=== PATIENT | male | born 1955 | race Caucasian/White ===

== ENCOUNTER 2019-12-21 10:08 | Outpatient (REF) | payer OTHER, SELFPAY ==
[2019-12-21 11:10] LABS: MANUAL DIFF FLAG NO
[2019-12-21 11:37] LABS: Basophils Absolute Auto 0.1 X10*3/uL (0.0-0.2); Basophils Percent Auto 0.8 % (0-2); Eosinophils Absolute Auto 0.3 X10*3/uL (0.0-0.4); Eosinophils Percent Auto 4.6 % (0-4); Hematocrit 45.6 % (42-52); Hemoglobin 15.1 g/dl (14.0-18.0); Imm Gran Abs Auto 0.03 X10*3/uL (0.00-0.03); Imm Gran Pct Auto 0.5 % (0.0-0.4); Lymphocytes Absolute Auto 1.6 X10*3/uL (1.2-4.9); Lymphocytes Percent Auto 25.5 % (20-40); Mean Corpuscular HGB Conc 33.1 g/dl (31.0-36.0); Mean Corpuscular Hemoglobin 30.6 pg (27.0-33.0); Mean Corpuscular Volume 92.3 fL (80-98); Mean Platelet Volume 10.7 fL (9.4-12.4); Monocytes Absolute Auto 0.4 X10*3/uL (0.1-1.2); Neutrophils Absolute Auto 3.9 X10*3/uL (2.0-8.3); Neutrophils Percent Auto 61.6 % (45-73); Platelet Count 156 X10*3/uL (160-400); Red Blood Count 4.94 X10*6/uL (4.60-5.80); Red Cell Distribution Width 11.9 % (11.0-16.0); White Blood Count 6.3 X10*3/uL (4.8-10.8)
[2019-12-21 11:54] LABS: Alanine Aminotransferase 130 U/L (0-40); Alkaline Phosphatase 63 U/L (39-117); Aspartate Amino Transferase 60 U/L (5-37); Bilirubin Direct 0.2 mg/dL (0.0-0.5); Bilirubin Total 0.4 mg/dL (0.0-1.0); Total Protein 6.4 g/dL (6.5-8.0)
== END 2019-12-21 10:09 | disposition home or self-care (01) ==
LOC: HO.HMGCLDS 10:08
PROVIDERS: PCP Internal Medicine; Visit Provider Internal Medicine
DX: D69.6 Thrombocytopenia, unspecified (principal); R74.8 Abnormal levels of other serum enzymes
CPT/HCPCS: 36415; 80076; 85025

== ENCOUNTER 2019-12-31 16:41 | Outpatient (REF) | payer OTHER, SELFPAY ==
[2020-01-03 03:40] LABS: HBS Num1 2.97 mIU/mL (0-7.99); Hepatitis B Core Antibody Nonreactive (Nonreactive); ~HepC Num1 0.09 S/CO (0.00-0.79); ~Hepatitis B Surface Antibody NONREACTIVE (Nonreactive); ~Hepatitis C Antibody Nonreactive (Nonreactive)
[2020-01-03 04:10] LABS: HBsAGNum1 0.16 S/CO (0.00-0.99); Hepatitis B Surface Antigen Negative (Negative)
[2020-01-05 08:03] LABS: Hepatitis A Antibody IgM 1.07 Index (0-0.79)
[2020-01-05 09:16] LABS: ~Hepatitis A Antibody IgM GRAYZONE (Nonreactive)
== END 2019-12-31 16:42 | disposition home or self-care (01) ==
LOC: HO.LNP 16:41
PROVIDERS: Visit Provider Internal Medicine
DX: R79.89 Other specified abnormal findings of blood chemistry (principal)
CPT/HCPCS: 86704; 86706; 86709; 86803; 87340

== ENCOUNTER 2020-01-04 09:51 | Outpatient (REF) | payer OTHER, SELFPAY ==
--- NOTE | 2020-01-04 | US_ITS ---
EXAMINATION: US ABDOMEN COMPLETE CLINICAL INFORMATION: Elevated LFTs. COMPARISON: CT abdomen and pelvis without and with contrast dated 11/25/2016. TECHNIQUE: Real-time imaging of the abdominal viscera. Technically difficult study secondary to body habitus. FINDINGS: PANCREAS: The pancreas is obscured by overlying gas. ABDOMINAL AORTA: The proximal segment is normal in caliber. Partially visualized mid and distal abdominal aorta appear to be normal caliber. INFERIOR VENA CAVA: Visualized portions are normal. LIVER: The liver is increased in echogenicity. The liver is normal in size. The liver contour is normal. No focal hepatic lesion seen. There is no intrahepatic biliary duct dilatation seen. GALLBLADDER: Surgically absent. COMMON BILE DUCT: Normal in caliber measuring 0.6 cm in diameter. RIGHT KIDNEY: There is an anechoic cyst midpole measuring 5.8 x 6.1 x 6.1 cm. No hydronephrosis or renal calculi. The kidney measures 12.4 cm in maximum dimension. LEFT KIDNEY: There is an anechoic cyst in the lower pole measuring 1.0 x 1.3 x 1.3 cm. There is mild pelvic fullness. The kidney measures 13.3 cm in maximum dimension. SPLEEN: Normal. The spleen measures 10.6 cm in maximum dimension. FREE FLUID: None. US/US abdomen complete IMPRESSION: 1. Hepatic steatosis. No focal lesion seen. 2. Bilateral renal cysts. There is mild pelvic fullness in the left kidney. 3. The rest of the abdominal ultrasound is unremarkable.
== END 2020-01-04 09:52 | disposition home or self-care (01) ==
LOC: HO.HMGCX 09:51
PROVIDERS: PCP Internal Medicine; Visit Provider Internal Medicine
DX: R79.89 Other specified abnormal findings of blood chemistry (principal)
CPT/HCPCS: 76700

== ENCOUNTER 2020-01-07 14:56 | Outpatient (REF) | payer OTHER, SELFPAY ==
[2020-01-13 08:16] LABS: Hepatitis A Antibody IgM 0.57 Index (0-0.79); ~Hepatitis A Antibody IgM Nonreactive (Nonreactive)
== END 2020-01-07 14:57 | disposition home or self-care (01) ==
LOC: HO.LNP 14:56
PROVIDERS: Visit Provider Internal Medicine
DX: R79.89 Other specified abnormal findings of blood chemistry (principal)
CPT/HCPCS: 86709

== ENCOUNTER → 2020-01-12 13:18 | Outpatient (BNVA) | payer OTHER, SELFPAY | PROVIDERS: PCP Internal Medicine; Visit Provider Internal Medicine | DX: B15.9 Hepatitis A without hepatic coma (principal) | CPT/HCPCS: 99202 ==

== ENCOUNTER 2020-03-14 10:23 | Day surgery (SDC) | payer OTHER, SELFPAY ==
[2020-03-08 13:07] VITALS: BMI 38.4
--- NOTE | 2020-03-13 09:48 | P.CONAN_ITS ---
Documented by User: Angelina Norris 03/13/20 09:49 HPI - Anesthesia Eval Consult details Narrative: 64yo M for Colonoscopy [facility] Past Medical History Medical History Asthma COPD (chronic obstructive pulmonary disease) DVT (deep venous thrombosis) Hepatitis HTN (hypertension) Sleep apnea Surgical History Surgical History H/O colonoscopy Hx of cholecystectomy Social History Social History Smoking Status: Current every day smoker Packs Per Day: 0.75 Cigarettes Per Day: 15.0 Years Smoked: 30 Use of substances other than those prescribed or required for medical reasons: No Advance Directives Information Provided: No Recently lost weight without trying: No Meds Allergies Allergy/AdvReac Type Severity Reaction Status Date / Time cephalexin Allergy Intermediate Rash Verified 03/08/20 13:14 Home Medications Medication Instructions Recorded Confirmed Type colestipol 1 gram tablet 1 g PO BID 01/12/20 03/08/20 History ibuprofen 200 mg tablet 200 mg PO Q6H PRN 01/12/20 03/08/20 History lisinopril 10 mg tablet 10 mg PO DAILY 01/12/20 03/08/20 History montelukast 10 mg tablet 10 mg PO DAILY 01/12/20 03/08/20 History tfnwqcfdofav-hjz-jjpch acid-vit 1 tab PO DAILY 01/12/20 03/08/20 History K-lycop 400 mcg-20 mcg-370 mcg tablet Exam Exam Date and Time: March 13, 2020 0948 Height,Weight and Vital Signs: Height 5 ft 6 in Weight 107.955 kg Assessment and Plan Assessment Anesthesia Assessment: Chart Reviewed Documented by User: Marv Deleon 03/14/20 10:43 [facility] Past Medical History Medical History Asthma COPD (chronic obstructive pulmonary disease) DVT (deep venous thrombosis) Hepatitis HTN (hypertension) Sleep apnea Surgical History Surgical History H/O colonoscopy Hx of cholecystectomy Social History Social History Smoking Status: Current every day smoker Packs Per Day: 0.75 Cigarettes Per Day: 15.0 Years Smoked: 30 Use of substances other than those prescribed or required for medical reasons: No Advance Directives Information Provided: No Recently lost weight without trying: No Meds Allergies Allergy/AdvReac Type Severity Reaction Status Date / Time cephalexin Allergy Intermediate Rash Verified 03/08/20 13:14 Home Medications Medication Instructions Recorded Confirmed Type colestipol 1 gram tablet 1 g PO BID 01/12/20 03/08/20 History ibuprofen 200 mg tablet 200 mg PO Q6H PRN 01/12/20 03/08/20 History lisinopril 10 mg tablet 10 mg PO DAILY 01/12/20 03/08/20 History montelukast 10 mg tablet 10 mg PO DAILY 01/12/20 03/08/20 History hfyemxxngxut-hyg-fhipo acid-vit 1 tab PO DAILY 01/12/20 03/08/20 History K-lycop 400 mcg-20 mcg-370 mcg tablet Exam Airway Mallampati Class: III TM Dist: >3cm Neck ROM: Full
--- NOTE | 2020-03-14 10:44 | MHC.SHP ---
Pre-Procedural Eval Section A The patient is an INPATIENT: No Changes since office visit: No Cold of Flu in the past 2 weeks, No New Medical Problems, No Changes in Medication and No Patient answered all questions The History & Physical has been completed within 30 days and I have reviewed it.: Yes Section B Chief Complaint: Fecal Abnormalities Allergies: Allergies Allergy/AdvReac Type Severity Reaction Status Date / Time cephalexin Allergy Intermediate Rash Verified 03/08/20 13:14 Plan I have reviewed the history and physical and performed a pertinent physical examination on my patient. No changes have occurred unless specified.
[2020-03-14 10:51] VITALS: BP 140/85; PULSE 65; RESP 16; TEMP 36.8; O2SAT 99
[2020-03-14] MEDS: Lactated Ringers 1,000 ML 100 ML IVCONT (11:01)
--- NOTE | 2020-03-14 11:04 | PC.NURSE ---
LLL CONGESTED. SMOKER. RLL SLIGHT RHONCHI
[2020-03-14 11:43] VITALS: BP 121/75; PULSE 65; RESP 14; TEMP 36.6; O2SAT 99
--- NOTE | 2020-03-14 11:54 | PM.OP ---
Brief Operative Note Date of Service: 03/14/20 Pre-op diagnosis: abnormal findings in stool Post-op diagnosis: same (colon polyps) Procedure: colonoscopy Surgeon: Aurelio Winchester Anesthesia: MAC Estimated blood loss (mL): 5 Pathology: other (polyps cecum, 70, 40 cm) Condition: stable Disposition: PACU
[2020-03-14 11:58] VITALS: BP 123/67; PULSE 65; RESP 17; TEMP 36.6; O2SAT 99
--- NOTE | 2020-03-14 12:03 | OP_ITS ---
SURGEON: Aurelio Winchester MD INDICATIONS: Abnormal findings in stool. PREOPERATIVE DIAGNOSIS: POSTOPERATIVE DIAGNOSIS: PROCEDURE PERFORMED: Colonoscopy to the terminal ileum with biopsy and snare polypectomy. ESTIMATED BLOOD LOSS: COMPLICATIONS: ANESTHESIA: ASSISTANTS: SPECIMENS: MEDICATIONS: Monitored anesthesia care. DESCRIPTION OF PROCEDURE: History and physical performed. The risks and benefits of the procedure were explained to the patient. Informed consent was obtained. The patient was placed in left lateral decubitus position. A digital rectal exam was performed and was found to be normal. The Olympus pediatric video colonoscope was introduced into the rectum and advanced to the cecum without difficulty. The cecum was identified by transillumination, palpation, and identification of ileocecal valve. Examination was performed and the scope was removed. He tolerated the procedure well and was taken to recovery area in stable condition. FINDINGS: The terminal ileum was normal. There was some liquid stool coating the mucosa. This was washed and suctioned. Three polyps were identified. All measured less than 10 mm and were removed with biopsy forceps and snare. These were located in the cecum at 70 cm and at 40 cm. There was moderate diverticulosis of the sigmoid. Retroflexed examination showed internal hemorrhoids. IMPRESSION: Colon polyps. RECOMMENDATION: Follow up the biopsy results. MD CATHERINE Recio/MODL / [id number]
--- NOTE | 2020-03-14 12:42 | HO.POSTANES ---
Post Anesthesia Evaluation Post Anesthesia Evaluation Vital Signs: Vital Signs Temp Pulse Resp BP Pulse Ox 03/14/20 11:58 97.8 F 65 17 123/67 99 03/14/20 11:43 97.8 F 65 14 121/75 99 03/14/20 10:51 98.2 F 65 16 140/85 H 99 Anesthesia: Monitored Mental Status: Awake Pain Control: Satisfactory Nausea/Vomiting: None Hydration: Adequate Anesthesia-Related Issues: No Anes. Related Issues
== END 2020-03-14 12:30 | disposition home or self-care (01) ==
PROVIDERS: PCP Internal Medicine; Visit Provider Internal Medicine Gastroenterology
PROC: 0DJD8ZZ Inspection of Lower Intestinal Tract, Via Natural or Artificial Opening Endoscopic (ICD-10-PCS; CPT 45378; principal; 2020-03-14 11:30)
DX: R19.5 Other fecal abnormalities (principal); D12.5 Benign neoplasm of sigmoid colon; K63.5 Polyp of colon; K57.30 Diverticulosis of large intestine without perforation or abscess without bleeding; K64.8 Other hemorrhoids; I10 Essential (primary) hypertension; J44.9 Chronic obstructive pulmonary disease, unspecified; G47.33 Obstructive sleep apnea (adult) (pediatric); Z99.89 Dependence on other enabling machines and devices; Z79.899 Other long term (current) drug therapy; Z86.718 Personal history of other venous thrombosis and embolism; Z90.49 Acquired absence of other specified parts of digestive tract; F17.210 Nicotine dependence, cigarettes, uncomplicated
CPT/HCPCS: 45385; 45380; 88305

== ENCOUNTER 2020-11-21 10:28 | Outpatient (REF) | payer OTHER, SELFPAY ==
[2020-11-21 10:32] LABS: MANUAL DIFF FLAG NO
[2020-11-21 10:54] LABS: Basophils Absolute Auto 0.1 X10*3/uL (0.0-0.2); Basophils Percent Auto 0.8 % (0-2); Eosinophils Absolute Auto 0.3 X10*3/uL (0.0-0.4); Eosinophils Percent Auto 4.1 % (0-4); Hematocrit 43.8 % (42-52); Hemoglobin 14.7 g/dl (14.0-18.0); Imm Gran Abs Auto 0.03 X10*3/uL (0.00-0.03); Imm Gran Pct Auto 0.4 % (0.0-0.4); Lymphocytes Absolute Auto 2.1 X10*3/uL (1.2-4.9); Lymphocytes Percent Auto 29.1 % (20-40); Mean Corpuscular HGB Conc 33.6 g/dl (31.0-36.0); Mean Corpuscular Hemoglobin 30.8 pg (27.0-33.0); Mean Corpuscular Volume 91.8 fL (80-98); Mean Platelet Volume 10.3 fL (9.4-12.4); Monocytes Absolute Auto 0.6 X10*3/uL (0.1-1.2); Monocytes Percent Auto 7.8 % (2-11); Neutrophils Absolute Auto 4.1 X10*3/uL (2.0-8.3); Neutrophils Percent Auto 57.8 % (45-73); Platelet Count 178 X10*3/uL (160-400); Red Blood Count 4.77 X10*6/uL (4.60-5.80); White Blood Count 7.1 X10*3/uL (4.8-10.8)
[2020-11-21 11:17] LABS: Appearance Urine CLEAR; Color Urine YELLOW; Glucose Urine UA NEG (NEG); Leukocyte Esterase Urine NEG (NEG); Nitrite Urine NEG (NEG); PH 5.5 (5.0-8.0); Specific Gravity - Urine >= 1.030 (1.005-1.025); Urine Blood TRACE (NEG); Urine Ketones NEG (NEG); Urine Protein NEG (NEG-TRACE)
[2020-11-21 11:32] LABS: Alanine Aminotransferase 38 U/L (0-40); Albumin Level 3.9 g/dL (3.5-5.0); Alkaline Phosphatase 62 U/L (39-117); Anion Gap 11 (12-20); Aspartate Amino Transferase 30 U/L (5-37); Bilirubin Total 0.7 mg/dL (0.0-1.0); Blood Urea Nitrogen 15 mg/dL (9-16); Carbon Dioxide 27 mmol/L (22-29); Chloride 107 mmol/L (96-108); Cholesterol 172 mg/dL; Estimated Glomerular Filt Rate 58; Glucose Fasting 91 mg/dL (60-99); HDL Cholesterol 38 mg/dL; LDL Cholesterol Calculated 103 mg/dl; Sodium 141 mmol/L (135-145); Total Protein 6.2 g/dL (6.5-8.0); Triglycerides 157 mg/dL
[2020-11-21 12:11] LABS: Mucus Urine 1+ /LPF; RBC Urine 0 /HPF (0); Squamous Epithelial Cell Urine TRACE /LPF; WBC Urine 0-2 /HPF (0-4)
[2020-11-21 12:40] LABS: PSA,Total (Free>4and<10) 0.21 ng/mL (0.00-4.00)
[2020-11-21 12:48] LABS: Reflex LDLD? No
[2020-11-27 11:16] LABS: Testosterone, Total 361 ng/dL (250-1100)
== END 2020-11-21 10:29 | disposition home or self-care (01) ==
LOC: HO.LNP 10:28
PROVIDERS: Visit Provider Internal Medicine
DX: Z00.00 Encounter for general adult medical examination without abnormal findings (principal); Z12.5 Encounter for screening for malignant neoplasm of prostate; R79.89 Other specified abnormal findings of blood chemistry; E29.1 Testicular hypofunction; I10 Essential (primary) hypertension; D69.6 Thrombocytopenia, unspecified
CPT/HCPCS: 80053; 80061; 81001; 81003; 84153; 84403; 85025

== ENCOUNTER 2020-12-25 08:24 | Outpatient (REF) | payer OTHER, SELFPAY ==
--- NOTE | ~2020-12-25 | XR_ITS ---
EXAMINATION: XR PELVIS CLINICAL INFORMATION: Pain in unspecified hip. COMPARISON: None TECHNIQUE: AP view of the pelvis. FINDINGS: The bony alignments are intact. The cortices are intact. Mild osteopenia is noted. No significant osteoarthrosis is seen at both hips. Both SI joints and symphysis appear unremarkable. The soft tissues are unremarkable. XR/XR pelvis 1-2V IMPRESSION: 1. Mild diffuse osteopenia. 2. No radiographic evidence of any arthritic changes are present at both hips, both SI joints and symphysis pubis on this limited frontal projection.
== END 2020-12-25 08:25 | disposition home or self-care (01) ==
LOC: HO.HOSX 08:24
PROVIDERS: Visit Provider Orthopaedic Surgery
DX: M25.559 Pain in unspecified hip (principal); R26.9 Unspecified abnormalities of gait and mobility; E66.01 Morbid (severe) obesity due to excess calories; D17.1 Benign lipomatous neoplasm of skin and subcutaneous tissue of trunk; F17.210 Nicotine dependence, cigarettes, uncomplicated
CPT/HCPCS: 72170; 99212

== ENCOUNTER → 2021-08-24 11:14 | Outpatient (BNVA) | payer OTHER, SELFPAY | PROVIDERS: PCP Internal Medicine; Visit Provider Internal Medicine | DX: S39.012A Strain of muscle, fascia and tendon of lower back, initial encounter (principal); X50.3XXA Overexertion from repetitive movements, initial encounter | CPT/HCPCS: 99203 ==

== ENCOUNTER → 2021-08-28 09:28 | Outpatient (BNVA) | payer OTHER, SELFPAY | PROVIDERS: PCP Internal Medicine; Visit Provider Internal Medicine | DX: S39.012A Strain of muscle, fascia and tendon of lower back, initial encounter (principal); X50.3XXA Overexertion from repetitive movements, initial encounter | CPT/HCPCS: 99213 ==

== ENCOUNTER 2021-11-22 11:47 | Outpatient (REF) | payer OTHER, SELFPAY ==
[2021-11-22 14:23] LABS: MANUAL DIFF FLAG NO
[2021-11-22 14:30] LABS: Appearance Urine Clear; Color Urine Yellow; Glucose Urine UA Negative (Negative); Leukocyte Esterase Urine Negative (Negative); Nitrite Urine Negative (Negative); PH 6.5 (5.0-9.0); UMIC TRIGGER UA YES; Urine Blood Small (1+) (Negative); Urine Ketones Negative (Negative); Urine Protein Negative (Neg-Trace)
[2021-11-22 14:31] LABS: Basophils Absolute Auto 0.1 X10*3/uL (0.0-0.2); Basophils Percent Auto 0.9 % (0-2); Eosinophils Absolute Auto 0.2 X10*3/uL (0.0-0.4); Eosinophils Percent Auto 2.9 % (0-4); Hematocrit 40.7 % (42.0-52.0); Hemoglobin 13.9 g/dl (14.0-18.0); Imm Gran Abs Auto 0.04 X10*3/uL (0.00-0.03); Imm Gran Pct Auto 0.6 % (0.0-0.4); Mean Corpuscular HGB Conc 34.2 g/dl (31.0-36.0); Mean Corpuscular Hemoglobin 30.3 pg (27.0-33.0); Mean Corpuscular Volume 88.9 fL (80.0-98.0); Mean Platelet Volume 10.5 fL (9.4-12.4); Monocytes Absolute Auto 0.4 X10*3/uL (0.1-1.2); Monocytes Percent Auto 5.7 % (2-11); Neutrophils Absolute Auto 4.2 x10*3/uL (2.0-8.3); Neutrophils Percent Auto 60.9 % (45-73); Platelet Count 155 X10*3/uL (160-400); Red Blood Count 4.58 X10*6/uL (4.60-5.80); Red Cell Distribution Width 12.1 % (11.0-16.0); White Blood Count 6.8 X10*3/uL (4.8-10.8)
[2021-11-22 14:33] LABS: Bacteria Urine None Seen (None Seen); Hyaline Casts Urine 0-2 /LPF (0-2); Squamous Epithelial Cell Urine 0-2 /HPF (0-2); WBC Urine 0-5 /HPF (0-5)
[2021-11-22 14:46] LABS: Alanine Aminotransferase 38 U/L (0-40); Albumin Level 4.2 g/dL (3.5-5.0); Alkaline Phosphatase 61 U/L (39-117); Anion Gap 14 (12-20); Aspartate Amino Transferase 29 U/L (5-37); Bilirubin Total 0.5 mg/dL (0.0-1.0); Blood Urea Nitrogen 17 mg/dL (9-16); Calcium 9.3 mg/dL (8.4-10.2); Carbon Dioxide 27 mmol/L (22-29); Chloride 106 mmol/L (96-108); Cholesterol 181 mg/dL; Estimated Glomerular Filt Rate > 60; Glucose Fasting 82 mg/dL (60-99); HDL Cholesterol 39 mg/dL; LDL Cholesterol Calculated 106 mg/dl; Potassium 4.8 mmol/L (3.3-5.1); Sodium 142 mmol/L (135-145); Total Protein 6.7 g/dL (6.5-8.0); Triglycerides 184 mg/dL
[2021-11-22 15:09] LABS: Prostate Specific Antigen 0.26 ng/mL (<0.05-4.0)
[2021-11-26 09:40] LABS: Testosterone, Total 267 ng/dL (250-1100)
== END 2021-11-22 11:48 | disposition home or self-care (01) ==
LOC: HO.HMGCLDS 11:47
PROVIDERS: PCP Internal Medicine; Visit Provider Internal Medicine
DX: Z00.00 Encounter for general adult medical examination without abnormal findings (principal); Z12.5 Encounter for screening for malignant neoplasm of prostate; I10 Essential (primary) hypertension; E29.1 Testicular hypofunction; D69.6 Thrombocytopenia, unspecified
CPT/HCPCS: 36415; 80053; 80061; 81001; 84153; 84403; 85025

== ENCOUNTER 2022-12-17 11:15 | Outpatient (REF) | payer MEDICARE, MEDICAID, SELFPAY ==
[2022-12-17 11:24] LABS: MANUAL DIFF FLAG NO
[2022-12-17 12:26] LABS: Basophils Absolute Auto 0.1 X10*3/uL (0.0-0.2); Eosinophils Absolute Auto 0.1 X10*3/uL (0.0-0.4); Eosinophils Percent Auto 2.1 % (0-4); Hematocrit 46.5 % (42.0-52.0); Hemoglobin 15.3 g/dl (14.0-18.0); Imm Gran Abs Auto 0.04 X10*3/uL (0.00-0.03); Imm Gran Pct Auto 0.6 % (0.0-0.4); Lymphocytes Absolute Auto 1.8 X10*3/uL (1.2-4.9); Lymphocytes Percent Auto 26.5 % (20-40); Mean Corpuscular HGB Conc 32.9 g/dl (31.0-36.0); Mean Corpuscular Volume 91.2 fL (80.0-98.0); Mean Platelet Volume 10.1 fL (9.4-12.4); Monocytes Absolute Auto 0.4 X10*3/uL (0.1-1.2); Monocytes Percent Auto 6.1 % (2-11); Neutrophils Absolute Auto 4.3 x10*3/uL (2.0-8.3); Neutrophils Percent Auto 63.7 % (45-73); Platelet Count 155 X10*3/uL (160-400); Red Cell Distribution Width 12.2 % (11.0-16.0); White Blood Count 6.7 X10*3/uL (4.8-10.8)
[2022-12-17 12:34] LABS: Appearance Urine Clear; Color Urine Yellow; Glucose Urine UA Negative (Negative); Leukocyte Esterase Urine Negative (Negative); Nitrite Urine Negative (Negative); PH 8.5 (5.0-9.0); Specific Gravity - Urine 1.015 (1.005-1.025); Urine Blood Negative (Negative); Urine Ketones Negative (Negative); Urine Protein Negative (Neg-Trace)
[2022-12-17 12:53] LABS: Bacteria Urine None Seen (None Seen); Hyaline Casts Urine 0-2 /LPF (0-2); Squamous Epithelial Cell Urine 0-2 /HPF (0-2); WBC Urine 0-5 /HPF (0-5)
[2022-12-17 12:59] LABS: Alanine Aminotransferase 18 U/L (0-40); Albumin Level 3.9 g/dL (3.5-5.0); Alkaline Phosphatase 90 U/L (39-117); Anion Gap 13 (12-20); Aspartate Amino Transferase 21 U/L (5-37); Bilirubin Total 0.7 mg/dL (0.0-1.0); Blood Urea Nitrogen 8 mg/dL (9-16); Calcium 8.9 mg/dL (8.4-10.2); Carbon Dioxide 27 mmol/L (22-29); Chloride 106 mmol/L (96-108); Cholesterol 158 mg/dL (<200); Estimated Glomerular Filt Rate > 60; Glucose Fasting 91 mg/dL (60-99); HDL Cholesterol 40 mg/dL (>40); LDL Cholesterol Calculated 95 mg/dL (<100); Potassium 4.6 mmol/L (3.3-5.1); Sodium 141 mmol/L (135-145); Total Protein 6.7 g/dL (6.5-8.0); Triglycerides 118 mg/dL (<150)
[2022-12-17 13:13] LABS: PSA,Total (Free>4and<10) 0.35 ng/mL (0.00-4.00)
== END 2022-12-17 11:16 | disposition home or self-care (01) ==
LOC: HO.LNP 11:15
PROVIDERS: Visit Provider Internal Medicine
DX: Z00.00 Encounter for general adult medical examination without abnormal findings (principal); I10 Essential (primary) hypertension; E29.1 Testicular hypofunction; D69.6 Thrombocytopenia, unspecified
CPT/HCPCS: 80053; 80061; 81001; 84153; 84403; 85025

== ENCOUNTER 2023-01-21 13:05 | Outpatient (REF) | payer MEDICARE, MEDICAID, SELFPAY ==
[2023-01-25 14:37] LABS: Testosterone, Total 399 ng/dL (250-1100)
== END 2023-01-21 13:06 | disposition home or self-care (01) ==
LOC: HO.LNP 13:05
PROVIDERS: Visit Provider Internal Medicine
DX: E29.1 Testicular hypofunction (principal)
CPT/HCPCS: 84403

== ENCOUNTER 2023-07-16 07:28 | Outpatient (REF) | payer MEDICARE, MEDICAID, SELFPAY ==
--- NOTE | ~2023-07-16 | XR_ITS ---
EXAMINATION: XR SHOULDER, RIGHT CLINICAL INFORMATION: Pain in the right shoulder COMPARISON: None available. TECHNIQUE: 2 views of the right shoulder. 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 Glenohumeral joint normal. Surrounding bone and soft tissues unremarkable. XR/XR shoulder RT min 2V IMPRESSION: Degenerative changes of the right shoulder.
== END 2023-07-16 07:29 | disposition home or self-care (01) ==
LOC: HO.HOSX 07:28
PROVIDERS: Visit Provider Orthopaedic Surgery
DX: M25.511 Pain in right shoulder (principal); Z91.81 History of falling
CPT/HCPCS: 73030; 99202

== ENCOUNTER 2023-07-16 12:37 | Outpatient (AMB) | payer MEDICARE, MEDICAID, SELFPAY ==
--- NOTE | 2023-07-16 12:41 | MHC.OFFVIS ---
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 The patient states that he fell onto his right shoulder approximately 6 months ago. Since that time his symptoms have gotten worse. He has failed the last 6 weeks of conservative treatment. He has had injections in the past which gave him minimal relief. Has also tried Tylenol and anti-inflammatory medicines which gave him only mild relief. The patient reports difficulty lifting his right hand above shoulder height. The patient states that his primary care doctor wanted to order an MRI to help evaluate the status of his rotator cuff tendons but the MRI was denied by his insurance company. The reason for the denial is not known at this time. Allergies cephalexin Allergy (Intermediate, Verified 08/20/21 11:00) Rash Medication List - Last Reconciled 07/16/23 by Roberto Jin MD colestipol 1 g PO BID cyclobenzaprine 10 mg PO BEDTIME ibuprofen 200 mg PO Q6H PRN lisinopril 10 mg PO DAILY meloxicam 15 mg PO DAILY montelukast 10 mg PO DAILY dpcdwpjw-mqa-xjman-vit K-lycop 400-20-370 mcg (Men's 50 Plus Multivitamin) 1 tab PO DAILY PFSH Medical History (Updated 07/16/23 @ 07:28 by Roberto Jin MD) DVT (deep venous thrombosis) Sleep apnea COPD (chronic obstructive pulmonary disease) Asthma HTN (hypertension) Hepatitis Surgical History (Updated 07/16/23 @ 12:57 by Marcelle Keller CMA) Hx of elbow surgery Hx of cholecystectomy H/O colonoscopy Social History (Updated 07/16/23 @ 12:57 by Marcelle Keller CMA) Cigarette Packs Per Day: 0.75 Cigarettes Per Day: 15.0 Years Smoked: 30 Current occupational status: employed 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, 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 Physical Exam Vital Signs: BMI result Body Mass Index 33.9 Const Other: Well-nourished well-developed very friendly male awake alert and oriented x3 in no acute distress Extrem Other: Bilateral upper extremity examination shows good capillary refill, no skin lesions noted, normal sensation light touch Right shoulder examination shows full passive range of motion but decreased active range of motion when compared to his left shoulder, 4/5 strength with supraspinatus testing, positive impingement signs, tenderness over his acromioclavicular joint, no instability Results Reviewed Results Reviewed: X-rays of the patient's right shoulder show severe acromioclavicular joint narrowing, a type 2 acromion, no acute bony abnormalities Assessment & Plan Assessment & Plan (1) Right shoulder pain: Code(s): M25.511 - Pain in right shoulder Category: Medical Plan Mr. Vaughn presents with right shoulder pain and weakness most likely due to a full-thickness rotator cuff tear. At this point the patient has failed the last 6 weeks of conservative treatment. I will order an MRI of his right shoulder for further evaluation. If he does have a full-thickness rotator cuff tear I will recommend surgical repair to optimize his future functional level. He will continue with his range of motion exercises in the meantime to prevent stiffness. Feel free to call me at any time should questions regarding his orthopedic management arise. Thank you very much for asking me to see this very friendly gentleman. I spent 22 minutes in reviewing the patient's records and imaging studies, seeing the patient and documenting in the medical record. Orders: Orders XR shoulder RT min 2V Today M25.511 - Pain in right shoulder Coding Level of Care Code New Pt Level 3 (29362) Diagnoses Right shoulder pain M25.511
[2023-07-16 12:51] VITALS: BMI 33.9
== END 2023-07-16 13:08 | disposition home or self-care (01) ==
PROVIDERS: PCP Internal Medicine; Visit Provider Orthopaedic Surgery
DX: M25.511 Pain in right shoulder (principal)
CPT/HCPCS: 99203

== ENCOUNTER 2023-08-05 13:05 | Outpatient (AMB) | payer MEDICARE, MEDICAID, SELFPAY ==
--- NOTE | 2023-08-05 13:11 | MHC.OFFVIS ---
Intake Visit Reasons: OV-Right shoulder MRI review Intake Note: Aden is a 68 year old 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 male who presents with Right shoulder pain and weakness. The patient states that he fell onto his right shoulder approximately 6 months ago. Since that time his symptoms have gotten worse. He has failed the last 6 weeks of conservative treatment. He has had injections in the past which gave him minimal relief. Has also tried Tylenol and anti-inflammatory medicines which gave him only mild relief. The patient reports difficulty lifting his right hand above shoulder height. He does do quite a bit lifting and mopping at work. Allergies cephalexin Allergy (Intermediate, Verified 08/05/23 13:11) Rash Medication List - Last Reconciled 08/05/23 by Roberto Jin MD dupilumab (Dupixent) mg subcut ibuprofen 200 mg PO Q6H PRN lisinopril 10 mg PO DAILY meloxicam 15 mg PO DAILY montelukast 10 mg PO DAILY qvmdukug-tut-xjief-vit K-lycop 400-20-370 mcg (Men's 50 Plus Multivitamin) 1 tab PO DAILY PFSH Medical History DVT (deep venous thrombosis) Sleep apnea COPD (chronic obstructive pulmonary disease) Asthma HTN (hypertension) Hepatitis Surgical History Hx of elbow surgery Hx of cholecystectomy H/O colonoscopy Social History Cigarette Packs Per Day: 0.75 Cigarettes Per Day: 15.0 Years Smoked: 30 Current occupational status: employed 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, 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 Physical Exam Const Other: Well-nourished well-developed very friendly male awake alert and oriented x3 in no acute distress Extrem Other: Bilateral upper extremity examination shows good capillary refill, no skin lesions noted, normal sensation light touch Right shoulder examination shows decreased active range of motion but full passive range of motion when compared to his left shoulder, positive impingement signs, 4/5 strength with supraspinatus testing, no instability, tenderness over his acromioclavicular joint Results Reviewed Results Reviewed: MRI of the patient's right shoulder show severe acromioclavicular joint narrowing, a type 2 acromion, a full-thickness supraspinatus tendon tear Assessment & Plan Assessment & Plan (1) Right shoulder pain: Code(s): M25.511 - Pain in right shoulder Category: Medical Plan Mr. Vaughn presents with progressively worsening right shoulder pain and weakness due to impingement syndrome, acromioclavicular joint arthritis and a full-thickness rotator cuff tear. I had a lengthy discussion with the patient regarding the treatment options. At this point he has failed continued non operative treatments. The risks and benefits of right shoulder surgery were discussed at length with the patient. The patient wishes to proceed with surgery. Surgery will involve right shoulder diagnostic arthroscopy with distal clavicle excision, acromioplasty and rotator cuff repair. The patient will contact my office to pick a surgery date when he is ready to do so. He will follow-up as instructed. Feel free to call me at any time should questions regarding his orthopedic management arise. I spent 22 minutes in reviewing the patient's records and imaging studies, seeing the patient and documenting in the medical record. Coding Level of Care Code Est Pt Level 3 (53803) Diagnoses Right shoulder pain M25.511
== END 2023-08-05 13:31 | disposition home or self-care (01) ==
PROVIDERS: PCP Internal Medicine; Visit Provider Orthopaedic Surgery
DX: M25.511 Pain in right shoulder (principal); S46.011A Strain of muscle(s) and tendon(s) of the rotator cuff of right shoulder, initial encounter
CPT/HCPCS: 99214

== ENCOUNTER → 2023-08-05 13:05 | Outpatient (BNVA) | payer MEDICARE, MEDICAID, SELFPAY | PROVIDERS: PCP Internal Medicine; Visit Provider Orthopaedic Surgery | DX: M75.41 Impingement syndrome of right shoulder (principal); M19.011 Primary osteoarthritis, right shoulder; M75.101 Unspecified rotator cuff tear or rupture of right shoulder, not specified as traumatic | CPT/HCPCS: 99212 ==

== ENCOUNTER 2023-10-01 11:26 | Outpatient (AMB) | payer MEDICARE, MEDICAID, SELFPAY ==
--- NOTE | 2023-10-01 11:34 | MHC.OFFVIS ---
Vital Signs 10/01/23 11:35 Height 5 ft 6 in Weight 210 lb BMI 33.9 Intake Visit Reasons: Preop RT Shoulder 10/10/23 DR Intake Note: Aden a 68 year old male who presents today for a preoperative right shoulder on 10/10/23 Pain management agreement reviewed and signed. Allergies cephalexin Allergy (Intermediate, Verified 10/01/23 11:35) Rash Medication List - Last Reconciled 10/01/23 by Mike Reyez PA-C dupilumab (Dupixent) mg subcut ibuprofen 200 mg PO Q6H PRN lisinopril 10 mg PO DAILY meloxicam 15 mg PO DAILY montelukast 10 mg PO DAILY clkygqhx-nht-qulij-vit K-lycop 400-20-370 mcg (Men's 50 Plus Multivitamin) 1 tab PO DAILY HPI HPI Preop RT Shoulder 10/10/23 DR: Details: Aden is a 68-year-old male who presents today for preoperative visit for right shoulder, already scheduled on 10/10/2023. He continues to have pain and limitations of the right shoulder which is affecting his daily life. 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 Review of Systems Const All systems reviewed & are unremarkable except as noted in HPI and below Physical Exam Vital Signs: BMI result Body Mass Index 33.9 Const General: cooperative, healthy appearing, comfortable and no acute distress Orientation/consciousness: patient oriented x3 HEENT Head: Yes normal to inspection, Yes normocephalic and Yes atraumatic Eyes General: appearance normal, both eyes and all related structures Neck Neck: Yes normal visual inspection and Yes no JVD Chest Chest palpation & inspection: normal inspection of the chest Resp Effort & Inspection: normal respiratory effort Auscultation: clear to auscultation bilaterally, crackles (no), rales (no), rhonchi (no) and wheezes (no) Cardio Jugular venous distension: no JVD Rate: regular rate Rhythm: regular rhythm Heart sounds: S1 normal heart sound present, S2 normal heart sound present, Murmur heart sound present (no) and Rub heart sound present (no) Peripheral pulses: Peripheral pulses 2+ throughout GI Inspection: Yes normal to inspection Palpation (GI): Soft to palpation Skin General skin exam: no rashes or lesions noted Neuro General: patient oriented x3 Extrem Other: Right shoulder examination shows decreased active range of motion but full passive range of motion when compared to his left shoulder, positive impingement signs, 4/5 strength with supraspinatus testing, no instability, tenderness over his acromioclavicular joint General: Yes normal to inspection, Yes no pedal edema and Yes no calf tenderness Psych Appearance: grossly normal Mental Status: mental status grossly normal Speech and movement: Normal speech and movement present Assessment & Plan Assessment & Plan (1) Impingement of right shoulder: Code(s): M25.811 - Other specified joint disorders, right shoulder Category: Medical (2) Right rotator cuff tear: Code(s): M75.101 - Unspecified rotator cuff tear or rupture of right shoulder, not specified as traumatic Category: Medical Plan I explained the procedure in detail along with the length of recovery and rehab course. I explained the risk, benefits and alternatives. Risk including, but not limited to infection, blood clots, bleeding, ongoing pain and stiffness. I explained the use of the sling post op ie: 6 weeks. Discussed the importance of PT post op and performing pendulum exercises immediately after surgery. I answered all their questions and with their understanding they have consented to move forward with Rotator cuff repair right shoulder with Dr Jin. Patient Instructions: Scribed for Mike Reyez PA-C, by Jonathan Prabhakar medical recruiter, on 10/01/2023 at 11:30 AM Mike LEBRON PA-C, have personally reviewed and agree with the information entered by the scribe. Coding Level of Care Code Est Pt Level 3 (03405) Diagnoses Impingement of right shoulder M25.811 Right rotator cuff tear M75.101
[2023-10-01 11:35] VITALS: BMI 33.9
== END 2023-10-01 14:46 | disposition home or self-care (01) ==
PROVIDERS: PCP Internal Medicine; Visit Provider Physician Assistant
DX: M25.811 Other specified joint disorders, right shoulder (principal); M75.101 Unspecified rotator cuff tear or rupture of right shoulder, not specified as traumatic
CPT/HCPCS: 99213

== ENCOUNTER → 2023-10-01 11:26 | Outpatient (BNVA) | payer MEDICARE, MEDICAID, SELFPAY | PROVIDERS: PCP Internal Medicine; Visit Provider Physician Assistant | DX: M25.811 Other specified joint disorders, right shoulder (principal); M75.101 Unspecified rotator cuff tear or rupture of right shoulder, not specified as traumatic | CPT/HCPCS: 99212 ==

== ENCOUNTER → 2023-10-02 14:09 | Outpatient (BNV) | payer MEDICARE, MEDICAID, SELFPAY | PROVIDERS: PCP Internal Medicine; Visit Provider Internal Medicine Cardiovascular Disease | DX: I10 Essential (primary) hypertension (principal); Z01.810 Encounter for preprocedural cardiovascular examination | CPT/HCPCS: 93010 ==

== ENCOUNTER 2023-10-10 07:17 | Day surgery (SDC) | payer MEDICARE, OTHER, SELFPAY ==
--- NOTE | 2023-10-02 | ECG_ITS ---
Test Reason : pre op Blood Pressure : / mmHG Vent. Rate : 067 BPM Atrial Rate : 067 BPM P-R Int : 140 ms QRS Dur : 074 ms QT Int : 372 ms P-R-T Axes : 050 064 069 degrees QTc Int : 393 ms Normal sinus rhythm Normal ECG No previous ECGs available Referred By: Angelina Norris Electronically Signed By:Red Thomas
[2023-10-02 13:25] VITALS: BP 133/71; PULSE 79; RESP 18; O2SAT 96; BMI 35.8
--- NOTE | 2023-10-02 13:46 | HO.ANESPROP2 ---
Documented by User: Angelina Norris NP 10/02/23 13:57 HPI - Anesthesia Eval Consult details Narrative: 68yo M for Right Shoulder Arthroscopy, distal clavicle excision, acromioplasty, and rotator cuff repair, 10/10/23 No recent illness Factor V with Hx of DVT x 1 ~ 20 years ago: Anticoag for dvt, none since. Doesn't follow heme Asthma/COPD/Smoker: Stable, no inhaler >6months, doesn't follow with pulmo PMFSH Active Problems Active Problems: All Active Problems Right rotator cuff tear (Acute) Impingement of right shoulder (Acute) Right shoulder pain (Acute) Chronic lower back pain (Acute) Gait abnormality (Acute) Hepatitis (Acute) Past Medical History Medical History Multiple lipomas Factor 5 Leiden mutation, heterozygous Arthritis Erectile dysfunction Smoker Testosterone deficiency Thrombocytopenia DVT (deep venous thrombosis) Sleep apnea COPD (chronic obstructive pulmonary disease) Asthma HTN (hypertension) Hepatitis Family History Family history of problems with anesthesia: No Surgical History Surgical History Hx of elbow surgery Hx of cholecystectomy H/O colonoscopy History of Problems with Anesthesia: No Social History Social History Are you a primary animal care specialist to a significant other at home: No Do you presently have visiting nurse or other home services: No Patient Tobacco Use Status: Current everyday Tobacco user Cigarette Packs Per Day: 0.75 Cigarettes Per Day: 15 Years Smoked: 30 Substance Use Frequency: Occasionally Have you been hit, kicked, punched, or otherwise hurt by someone within the past year? 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 Meds Allergies Allergy/AdvReac Type Severity Reaction Status Date / Time cephalexin Allergy Intermediate Rash Verified 10/10/23 08:02 Home Medications ?Medication ?Instructions ?Recorded ?Confirmed ?Last Taken ?Type lisinopril 10 mg tablet 10 mg PO DAILY 01/12/20 10/02/23 Unknown History montelukast 10 mg tablet 10 mg PO DAILY 01/12/20 10/02/23 Unknown History usdtajyherto-jcv-ozljw acid-vit 1 tab PO DAILY 01/12/20 10/02/23 Unknown History K-lycop 400 mcg-20 mcg-370 mcg tablet (Men's 50 Plus Multivitamin) dupilumab 300 mg/2 mL subcutaneous 300 mg subcut Q2W 08/05/23 10/02/23 Unknown History pen injector (Dupixent) albuterol sulfate 90 mcg/actuation 2 puff inhalation Q4-6H PRN 10/02/23 10/02/23 10/10/23 06:45 History aerosol inhaler Shortness Of Breath Or Wheezing Exam Height,Weight and Vital Signs: Height 5 ft 6 in Weight 100.698 kg Last Vital Signs Pulse 79 10/02/23 13:25 Resp 18 10/02/23 13:25 BP 133/71 10/02/23 13:25 Pulse Ox 96 10/02/23 13:25 O2 Del Method Room Air 10/02/23 13:25 Airway Mallampati Class: III TM Dist: >3cm Neck ROM: Limited (r/t shoulder) Denture: Upper Partial: Lower Loose/Missing/Broken Teeth: Yes (6 middle front lower are patient;s own and stable) Heart: RRR Lungs: Insp wheeze left upper Assessment and Plan Assessment Anesthesia Assessment: Anesthesia Plan Discussed, Smoking Cess. Discussed and PAT Visit Final Anesthetic Review Family History of Problems with Anesthesia: No History of Problems with Anesthesia: No Documented by User: Heide Espinoza MD 10/10/23 08:21 [facility] Past Medical History Medical History Multiple lipomas Factor 5 Leiden mutation, heterozygous Arthritis Erectile dysfunction Smoker Testosterone deficiency Thrombocytopenia DVT (deep venous thrombosis) Sleep apnea COPD (chronic obstructive pulmonary disease) Asthma HTN (hypertension) Hepatitis Surgical History Surgical History Hx of elbow surgery Hx of cholecystectomy H/O colonoscopy Social History Social History Are you a primary animal care specialist to a significant other at home: No Do you presently have visiting nurse or other home services: No Patient Tobacco Use Status: Current everyday Tobacco user Cigarette Packs Per Day: 0.75 Cigarettes Per Day: 15 Years Smoked: 30 Substance Use Frequency: Occasionally Have you been hit, kicked, punched, or otherwise hurt by someone within the past year? 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 Meds Allergies Allergy/AdvReac Type Severity Reaction Status Date / Time cephalexin Allergy Intermediate Rash Verified 10/10/23 08:02 Home Medications ?Medication ?Instructions ?Recorded ?Confirmed ?Last Taken ?Type lisinopril 10 mg tablet 10 mg PO DAILY 01/12/20 10/02/23 Unknown History montelukast 10 mg tablet 10 mg PO DAILY 01/12/20 10/02/23 Unknown History xbftqfmusuhc-qoq-mamyi acid-vit 1 tab PO DAILY 01/12/20 10/02/23 Unknown History K-lycop 400 mcg-20 mcg-370 mcg tablet (Men's 50 Plus Multivitamin) dupilumab 300 mg/2 mL subcutaneous 300 mg subcut Q2W 08/05/23 10/02/23 Unknown History pen injector (Dupixent) albuterol sulfate 90 mcg/actuation 2 puff inhalation Q4-6H PRN 10/02/23 10/02/23 10/10/23 06:45 History aerosol inhaler Shortness Of Breath Or Wheezing Assessment and Plan Final Anesthetic Review NPO: Yes ASA Class: III Final Preanesthetic Review: No Changes in Pt Med Stat, Meds/Allgs Chart Reviewed and Consent Obtained/Reviewed Patient Risk: Intermediate Procedure Risk: Intermediate Anesthetic Plan Anesthetic Plan: GA and Regional Block Disposition: Standard PACU
[2023-10-02 15:27] LABS: Hematocrit 41.2 % (42.0-52.0); Hemoglobin 14.3 g/dl (14.0-18.0); Mean Corpuscular HGB Conc 34.7 g/dl (31.0-36.0); Mean Corpuscular Hemoglobin 31.2 pg (27.0-33.0); Mean Corpuscular Volume 89.8 fL (80.0-98.0); Mean Platelet Volume 10.1 fL (9.4-12.4); Platelet Count 149 X10*3/uL (160-400); Red Blood Count 4.59 X10*6/uL (4.60-5.80); White Blood Count 7.8 X10*3/uL (4.8-10.8)
[2023-10-02 15:48] LABS: Anion Gap 11 (12-20); Blood Urea Nitrogen 14 mg/dL (9-16); Calcium 9.2 mg/dL (8.4-10.2); Carbon Dioxide 28 mmol/L (22-29); Chloride 108 mmol/L (96-108); Creatinine Clr Calc Pharmacy 79.1; Estimated Glomerular Filt Rate > 60; Glucose Random 96 mg/dL (60-115); Sodium 143 mmol/L (135-145)
[2023-10-10] VITALS (8 sets, daily range): BP systolic 111–145; BP diastolic 48–83; PULSE 61–83; RESP 12–17; TEMP 36.1–36.4; O2SAT 96–98
[2023-10-10] MEDS: Lactated Ringers 1,000 ML 100 ML IVCONT (08:01)
--- NOTE | 2023-10-10 08:02 | PC.NURSE ---
pt has multiple lipomas all over body
--- NOTE | 2023-10-10 11:09 | P.BOP_ITS ---
Brief Operative Note Date of Service: 10/10/23 Pre-op diagnosis: Right shoulder impingement syndrome, right shoulder acromioclavicular joint arthritis, right shoulder rotator cuff tear Post-op diagnosis: same Procedure: Right shoulder diagnostic arthroscopy with right shoulder arthroscopic distal clavicle excision, right shoulder arthroscopic acromioplasty, right shoulder mini-open rotator cuff repair Implants: One suture anchor ([employer] Twinfix anchor with #2 Ultrabraid suture) Surgeon: Roberto Jin MD Anesthesia: GETA and regional Was an Film Mounter used for this Procedure?: No Estimated blood loss (mL): 20 Pathology: none sent Condition: stable Disposition: PACU
[2023-10-10] MEDS: Clindamycin Phosphate/D5W 600 MG/50 ML PIGGYBACK 100 MG IV (11:10)
--- NOTE | 2023-10-10 11:14 | P.OP_ITS ---
Operative Note Operative Note Date of Service: 10/10/23 Narrative: After the patient was identified as Aden Vaughn and his right shoulder was initialed by myself the patient was brought to the holding area where a right shoulder interscalene regional block was performed by the anesthesiologist in routine fashion. The patient was then brought to the operating room where general anesthesia was induced by the anesthesiologist in routine fashion. Because of the patient's allergy to Keflex he was given 600 mg of IV clindamycin preoperatively for infection prophylaxis. Examination under anesthesia of the patient's right shoulder showed full passive range of motion of the patient's right shoulder when compared to the left. The patient was gently positioned in the beach chair position with all bony prominences well padded. The patient's right shoulder region and upper extremity were prepped and draped in sterile fashion. A formal time-out was completed. A #11 scalpel blade was used to make a posterior portal 2 cm inferior and 1 cm medial to the posterolateral corner of the acromion. Blunt trocar technique was used to enter the glenohumeral joint in routine fashion. An anterior portal was made just lateral to the coracoid process after proper positioning was confirmed using a spinal needle. Diagnostic arthroscopy showed minimal degenerative changes of the glenoid and humeral head articular surfaces. There was a full-thickness tear of the supraspinatus tendon. There was no evidence of injury to the biceps tendon or its insertion onto the glenoid. There was no inflammation of the anterior joint capsule. The arthroscope was then placed from the posterior portal into the subacromial space. A lateral portal was made 2 fingerbreadths lateral to the anterior lateral corner of the acromion. The ArthroCare Wand was used to ablate soft tissues along the undersurface of the acromion as well as to excise the coracoacromial ligament. There was a sharp spur along the undersurface of the acromion which was removed using the hooded bur. The arthroscope was then placed into the lateral portal and the acromioplasty was completed with the bur in the posterior portal using the posterior aspect of the acromion as a cutting block. The ArthroCare Wand was then brought in through the anterior portal and was used to ablate soft tissues along the acromioclavicular joint and distal clavicle. The posterior and superior ligamentous structures were left intact. A distal clavicle excision of 8 mm was performed using the hooded bur. Any remaining bursal tissue was removed using the arthroscopic shaver. The subacromial space was irrigated and then drained. All arthroscopic instruments were removed. Sterile gloves were changed and the shoulder was once again prepped with Betadine. A #15 scalpel blade was used to extend the lateral portal to the lateral edge of the acromion. The subacromial tissues were dissected using electrocautery down to the superficial deltoid fascia. The trocar split in the anterior raphe of the deltoid was then extended to the lateral edge of the acromion using electrocautery and curved Zavaleta scissors. Any remaining bursal tissue was removed using curved Zavaleta scissors. Subacromial and subdeltoid adhesions were bluntly dissected. The undersurface of the acromion was palpated and it was smooth. A #2 Ethibond tag suture was placed into the supraspinatus tendon. The tendon was easily mobilized to its insertion point on the glenoid. The wound was irrigated with copious amounts of normal saline solution. One suture anchor was placed into the greater tuberosity in routine fashion. The rotator cuff repair was then performed using horizontal mattress sutures under minimal tension with the patient's elbow at their side. Following the repair the shoulder was taken through a full range of motion. The repair wa s stable. The wound was irrigated with copious amounts of normal saline solution. The superficial and deep deltoid fascia were closed with #1 Vicryl [id number]-pa-[id number] interrupted suture. The wound was once again irrigated. The subcutaneous tissues were closed with 2-0 Vicryl interrupted suture. The skin was closed with 3-0 Prolene subcuticular suture and Steri-Strips. The anterior and posterior portals were closed with 3-0 nylon interrupted suture. Dry sterile dressing was placed over all incisions. The patient's right upper extremity was placed into a sling. The patient was awoken and extubated in the operating room. The patient was transferred to the recovery room in stable condition.
== END 2023-10-10 12:36 | disposition home or self-care (01) ==
PROVIDERS: Nurse Practitioner; PCP Internal Medicine; Visit Provider Orthopaedic Surgery
PROC: (CPT 29805; principal; 2023-10-10 09:00)
DX: M75.101 Unspecified rotator cuff tear or rupture of right shoulder, not specified as traumatic (principal); M75.41 Impingement syndrome of right shoulder; M19.011 Primary osteoarthritis, right shoulder; I10 Essential (primary) hypertension; J44.9 Chronic obstructive pulmonary disease, unspecified; K75.9 Inflammatory liver disease, unspecified; Z86.718 Personal history of other venous thrombosis and embolism; Z79.620 Long term (current) use of immunosuppressive biologic; Z79.1 Long term (current) use of non-steroidal anti-inflammatories (NSAID); Z79.899 Other long term (current) drug therapy; Z88.1 Allergy status to other antibiotic agents; Z98.890 Other specified postprocedural states; F17.210 Nicotine dependence, cigarettes, uncomplicated
CPT/HCPCS: 23412; 29824; 29826; 36415; 80048; 85027; 93005; C1713; J0131; J0171; J0665; J0736; J1100; J2250; J2405; J2704; J2795; J3010

== ENCOUNTER → 2023-10-10 07:17 | Outpatient (BNV) | payer MEDICARE, MEDICAID, SELFPAY | PROVIDERS: PCP Internal Medicine; Visit Provider Orthopaedic Surgery | DX: S46.011A Strain of muscle(s) and tendon(s) of the rotator cuff of right shoulder, initial encounter (principal); M75.41 Impingement syndrome of right shoulder; M19.011 Primary osteoarthritis, right shoulder | CPT/HCPCS: 23412; 29824 ==

== ENCOUNTER 2023-10-22 11:42 | Outpatient (AMB) | payer MEDICARE, MEDICAID, SELFPAY ==
--- NOTE | 2023-10-22 11:48 | A.OFFVIS_ITS ---
Intake Visit Reasons: PO RT Shoulder 10/10/23 Intake Note: Aden is a 68 year old male who presents to the office today for PO RT Shoulder 10/10/23 Pt states he has a little aching in his shoulder but states otherwise he is feeling okay. Sutures removed in office. He denies any fevers or chills. He is no longer taking narcotics for his discomfort. Allergies cephalexin Allergy (Intermediate, Verified 10/22/23 11:48) Rash Medication List - Last Reconciled 10/22/23 by Roberto Jin MD albuterol sulfate 90 mcg/actuation 2 puffs inhalation Q4-6H PRN dupilumab (Dupixent) 300 mg subcut Q2W lisinopril 10 mg PO DAILY montelukast 10 mg PO DAILY hwxfmovd-pof-jlsnb-vit K-lycop 400-20-370 mcg (Men's 50 Plus Multivitamin) 1 tab PO DAILY PFSH Medical History Multiple lipomas Factor 5 Leiden mutation, heterozygous Arthritis Erectile dysfunction Smoker Testosterone deficiency Thrombocytopenia DVT (deep venous thrombosis) Sleep apnea COPD (chronic obstructive pulmonary disease) Asthma HTN (hypertension) Hepatitis Surgical History Hx of elbow surgery Hx of cholecystectomy H/O colonoscopy Social History Are you a primary career technical supervisor to a significant other at home: No Do you presently have visiting nurse or other home services: No Patient Tobacco Use Status: Current everyday Tobacco user Cigarette Packs Per Day: 0.75 Cigarettes Per Day: 15 Years Smoked: 30 Current occupational status: employed 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 Vaughn is doing well after undergoing right shoulder rotator cuff repair jeramy garcia on 10/10/2023. His sutures were removed and Steri-Strips placed over his incisions. He does not wish to go to formal physical therapy. Passive stretching exercises were demonstrated to the patient. I will hold off on active lifting until he is 8 weeks out from surgery. I will see him back at that time. Feel free to call me at any time should questions regarding his orthopedic management arise. Coding Level of Care Code Global (02091) Diagnoses Right shoulder pain M25.511
== END 2023-10-22 12:42 | disposition home or self-care (01) ==
PROVIDERS: PCP Internal Medicine; Visit Provider Orthopaedic Surgery
DX: M25.511 Pain in right shoulder (principal)
CPT/HCPCS: 99024

== ENCOUNTER → 2023-10-22 11:42 | Outpatient (BNVA) | payer MEDICARE, MEDICAID, SELFPAY | PROVIDERS: PCP Internal Medicine; Visit Provider Orthopaedic Surgery | DX: M25.511 Pain in right shoulder (principal); Z47.89 Encounter for other orthopedic aftercare; Z98.890 Other specified postprocedural states | CPT/HCPCS: 99212 ==

== ENCOUNTER 2023-12-03 10:24 | Outpatient (AMB) | payer MEDICARE, MEDICAID, SELFPAY ==
--- NOTE | 2023-12-03 10:25 | MHC.OFFVIS ---
Intake Visit Reasons: PO RT Shoulder 10/10/23 Intake Note: Aden is a 68 year old male who presents with complaints of mild intermittent discomfort in his right shoulder after undergoing right shoulder rotator cuff repair surgery on 10/10/2023. He denies any fevers or chills. He is no longer taking narcotics for his discomfort. He continues with his home stretching program. The patient states that he will be moving to [place] over the next few weeks. Allergies cephalexin Allergy (Intermediate, Verified 12/03/23 10:25) Rash Medication List - Last Reconciled 12/03/23 by Roberto Jin MD albuterol sulfate 90 mcg/actuation 2 puffs inhalation Q4-6H PRN dupilumab (Dupixent) 300 mg subcut Q2W lisinopril 10 mg PO DAILY montelukast 10 mg PO DAILY hejxkepx-lwk-rlqza-vit K-lycop 400-20-370 mcg (Men's 50 Plus Multivitamin) 1 tab PO DAILY PFSH Medical History Multiple lipomas Factor 5 Leiden mutation, heterozygous Arthritis Erectile dysfunction Smoker Testosterone deficiency Thrombocytopenia DVT (deep venous thrombosis) Sleep apnea COPD (chronic obstructive pulmonary disease) Asthma HTN (hypertension) Hepatitis Surgical History Hx of elbow surgery Hx of cholecystectomy H/O colonoscopy Social History Are you a primary long term acute care registered nurse to a significant other at home: No Do you presently have visiting nurse or other home services: No Patient Tobacco Use Status: Current everyday Tobacco user Cigarette Packs Per Day: 0.75 Cigarettes Per Day: 15 Years Smoked: 30 Current occupational status: employed 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 Vaughn continues to do well after undergoing right shoulder rotator cuff repair surgery on 10/10/2023. He will continue with his home stretching program. The do's and don'ts of lifting were discussed at length with the patient. The patient is due to move to [place] over the next few weeks. He will follow up with me on an as-needed basis should his symptoms not plateau at an unacceptable level over the next few months. Feel free to call me at any time should questions regarding his orthopedic management arise. Coding Level of Care Code Global (10768) Diagnoses Right shoulder pain M25.511
== END 2023-12-03 10:38 | disposition home or self-care (01) ==
PROVIDERS: PCP Internal Medicine; Visit Provider Orthopaedic Surgery
DX: M25.511 Pain in right shoulder (principal)
CPT/HCPCS: 99024

== ENCOUNTER → 2023-12-03 10:24 | Outpatient (BNVA) | payer MEDICARE, MEDICAID, SELFPAY | PROVIDERS: PCP Internal Medicine; Visit Provider Orthopaedic Surgery | DX: M25.511 Pain in right shoulder (principal) | CPT/HCPCS: 99212 ==